=== PATIENT | female | born 1930 | race Caucasian/White ===

== ENCOUNTER 2017-07-07 05:15 | Day surgery (SDC) | payer MEDICARE, OTHER ==
[2017-07-06 15:08] LABS: BASOPHILS 0.2 % (0-2); EOSINOPHILS 2.5 % (0-7); HEMATOCRIT 39.2 % (36.0-48.0); LYMPHOCYTES 41.8 % (15-50); MCH 32.7 pg (26.0-34.0); MCHC 33.2 g/dL (31.0-37.0); MCV 98.5 fL (80.0-100.0); MEAN PLATELET VOLUME 10.3 fL (7.4-10.4); NEUTROPHILS 42.5 % (40-80); RBC 3.98 10x6/uL (4.00-5.40); RDW 13.5 % (11.5-14.5); WBC 5.7 10x3/uL (4.8-10.8)
[2017-07-06 15:10] LABS: PLATELET COUNT 154 10x3/uL (130-400)
[2017-07-06 15:31] LABS: ANION GAP 12.3 mmol/L (8-16); CALCIUM 9.4 mg/dL (8.5-10.1); CREATININE - SERUM 1.1 mg/dL (0.6-1.3); POTASSIUM - SERUM 4.3 mmol/L (3.5-5.1)
[~2017-07-07] VITALS: Ht 160 cm; Wt 62.6 kg
--- NOTE | ~2017-07-07 | OP ---
PATIENT NAME: WILEY VU MEDICAL RECORD: [id number] :34 LOCATION:D[facility] ADMISSION DATE: SURGEON: BLACK BROWN MD DATE OF OPERATION: 07/07/2017 DATE OF SURGERY: 07/07/2017 SURGEON: Black Brown MD ANESTHESIA: General anesthesia by Yo Mcdaniel CRNA PREOPERATIVE DIAGNOSES: 1. Urge urinary incontinence. 2. 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 PROCEDURES: 1. Cystoscopy and intravesical Botox injection 100 units. 2. Removal of bladder pacemaker and lead. FINDINGS: On cystoscopy, single ureteral orifices bilaterally. No bladder tumors. Trigonal inflammation with some patchy areas of bladder inflammation seen. For the bladder pacemaker, the old InterStim implant is a second generation device. No signs of infection. BLOOD LOSS: None. CLINICAL HISTORY: This is an 87-year-old female who has a long history of urge urinary incontinence. In the past, she was treated with Ditropan and finally with InterStim. The InterStim device never really worked for her and it is over 10 years old, so the battery is very likely to be . There are no signs of infection at the InterStim implant site. She has a history of glaucoma and therefore I gave her samples of Myrbetriq 50 mg to try. This did not help her urge incontinence. She comes today to have intravesical Botox injected. At the same time, we can remove her old InterStim implant for becomes infected. SHE IS ALLERGIC TO ALEVE, BENZOIN, CELEBREX, IBUPROFEN, VIOXX AND TETRACYCLINE. She was given Ancef 1 gram IV information management manager to the OR. DESCRIPTION OF PROCEDURE: The patient was given general anesthetic. She was placed in the dorsal lithotomy position and prepped and draped. Cystoscopy was performed using a 21-Tai[place]ese scope with 30-degree lens. At 10 different sites, we injected 1 cc of Botox solution. [place] units of Botox were diluted in 10 mL of injectable preservative-free saline. This meant that every milliliter of saline solution had 10 units of Botox in it. At 10 different locations, we injected 1 cc of the solution. The ureteral orifices and trigone were spared. Once this was performed, the bladder was emptied through the cystoscope sheath. The patient was then turned into prone position. She was then prepped and draped. The old InterStim implant is in the level of the right buttocks. The old incision was reopened using a 15 blade. Using cautery, we went down and opened the pseudocapsule around the pacemaker. The pacemaker and its attached lead were then removed out through the incision. By tugging on the lead, we could see where it inserted into the sacral foramen. There was a dimpling of the skin overlying the sacrum at this point. A small 15 blade incision was made here and using a hemostat, I managed to remove the end of the lead. The lead was cut so that the end with the tines could be removed separately without having to pull it through the subcutaneous tissue. The entire pacemaker with OPERATIVE REPORT [id number] WILEY VU its attached lead was sent to pathology for identification only. The wound was irrigated out using normal saline. We then closed the incisions with jennifer. The dressing was applied over this. The patient will be going home today. I will see her in followup next week to remove the jennifer. TRANSINT:[id number] Voice Confirmation ID: [id number] DOCUMENT ID: [id number] BLACK BROWN MD at 1156 CC: [id number] DICTATION DATE: 07/07/17 0938 [employer] FABRICATION: 07/07/17 1142 REG [facility] [address] [id number]
[~2017-07-07 05:15] MED LIST: ACETAMINOPHEN500 M1 PO; CALTRATE-600600 MG PO; CARDIZEM60 MG PO; COMBIGAN OPHT DR5 ML EACH EYE; COMBIGAN OPHT DR5 ML LEFT EYE; COUMADIN1 MG; ENABLEX15 MG PO; FIBERCON625 MG; FOSAMAX 70 MG T70 MG PO; ISORDIL5 MG PO; LISINOPRIL5 MG PO; LOVAZA1 G PO; METOPROLOL TART25 MG PO; MULTI-DAY VITAM1 TAB PO; NIASPAN500 MG PO; OCUVITE TABLET1 TA1 PO; PACERONE100 MG PO; PROTONIX40 MG PO; RELAFEN750 MG PO; TUMERIC PO; VITAMIN B-122500 MCG PO; VITAMIN C1000 MG PO; VITAMIN D31000 UNIT PO
[2017-07-07 06:43] LABS: APTT 38.3 SECONDS (22.8-39.4); INR 1.31 (0.85-1.17); PROTIME 15.8 SECONDS (11.6-15.0)
[2017-07-07] MEDS ORDERED: CARDIZEM60 MG PO (07:02)
[2017-07-07 07:06] VITALS: BP 95/53; Ht 160 cm; Wt 62.6 kg
[2017-07-07] MEDS ORDERED: TYLENOL W/CODEI1 TAB PO (10:45)
== END 2017-07-07 11:35 | disposition home or self-care (01) ==
LOC: D.OPS 05:15 → D.PAN 07:30 → D.OPS 07:30 → D.PAN 08:05 → D.OPS 11:35
PROVIDERS: Anesthesiology
DX: N39.41 Urge incontinence (principal); T83.190A Other mechanical complication of urinary electronic stimulator device, initial encounter; H40.9 Unspecified glaucoma; Z88.6 Allergy status to analgesic agent; Z88.1 Allergy status to other antibiotic agents; Z88.8 Allergy status to other drugs, medicaments and biological substances; Z01.812 Encounter for preprocedural laboratory examination